=== PATIENT | female | born 1985 | race Caucasian/White ===

== ENCOUNTER 2019-05-02 22:45 | Emergency (ER) | payer SELFPAY ==
[2019-05-02 23:38] VITALS: BP 107/65
--- NOTE | 2019-05-02 23:52 | ER Document Report ---
ED Cardiac - General Chief Complaint: Arrhythmia Stated Complaint: CHEST PAIN Time Seen by Provider: 05/02/19 23:40 Mode of Arrival: Ambulatory Information source: Patient TRAVEL OUTSIDE OF THE [place] IN LAST 30 DAYS: No - HPI Notes: Patient presents stating that earlier she was having palpitations and felt lightheaded and dizzy. She states she feels much better currently. She states that she feels this was due to anxiety. She states she is currently in town for work. She states that she is stressed out because she is working 14 to 16-hour days. She states she only gets to go home 2 days a week. She states she has 4 children at home and that today they were asking her to come home and this made her more anxious. She states that she definitely feels better now and has no more palpitations or lightheadedness. There is no significant chest pain or shortness of breath. She states she has had this 1 time before secondary to stress. She states that her doctor recommended a monitor but she never had this done. She denies any significant past medical history. She denies any use of energy drinks. The symptoms today were moderate. It did not radiate. They are made worse with stress and better without stress. The symptoms were intermittent. Past Medical History - General Information source: Patient - Social History Smoking Status: Never Smoker Frequency of alcohol use: None Drug Abuse: None Family History: Reviewed & Not Pertinent Patient has suicidal ideation: No Patient has homicidal ideation: No Review of Systems - Review of Systems Constitutional: denies: Chills, Fever Cardiovascular: Palpitations. denies: Chest pain Respiratory: denies: Cough, Sputum -: Yes All other systems reviewed and negative Physical Exam - Vital signs Vitals: Resp 10 L 05/02/19 23:20 Interpretation: Normal - General General appearance: Appears well, Alert - HEENT Head: Normocephalic, Atraumatic Eyes: Normal Pupils: PERRL - Respiratory Respiratory status: No respiratory distress Chest status: Nontender Breath sounds: Normal Chest palpation: Normal - Cardiovascular Rhythm: Regular Heart sounds: Normal auscultation Murmur: No - Abdominal Inspection: Normal Distension: No distension Bowel sounds: Normal Tenderness: Nontender Organomegaly: No organomegaly - Back Back: Normal, Nontender - Extremities General upper extremity: Normal inspection, Nontender, Normal color, Normal ROM, Normal temperature General lower extremity: Normal inspection, Nontender, Normal color, Normal ROM, Normal temperature, Normal weight bearing. No: Carlos's sign - Neurological Neuro grossly intact: Yes Cognition: Normal Orientation: AAOx4 [place] Coma Scale Eye Opening: Spontaneous [place] Coma Scale Verbal: Oriented [place] Coma Scale Motor: Obeys Commands [place] Coma Scale Total: 15 Speech: Normal Motor strength normal: LUE, RUE, LLE, RLE Sensory: Normal - Psychological Associated symptoms: Normal affect, Normal mood - Skin Skin Temperature: Warm Skin Moisture: Dry Skin Color: Normal Course - Re-evaluation Re-evalutation: 05/02/19 23:51 Patient presents with a report of some lightheadedness and palpitations that is now resolved. Patient is PERC negative. I see no evidence of arrhythmia on EKG. She has normal vitals and a normal exam. She states she feels back to normal. It does seem most consistent with anxiety. I do not believe that further work-up would be beneficial. - Vital Signs Vital signs: Temp Pulse Resp BP Pulse Ox 98.5 F 79 16 107/65 99 05/02/19 23:37 05/02/19 23:37 05/02/19 23:37 05/02/19 23:37 05/02/19 23:37 - EKG Interpretation by Me EKG shows normal: Sinus rhythm Rate: Normal - 79 Rhythm: NSR [place]/QRS: No: Right axis deviation, Left axis deviation Discharge - Discharge Clinical Impression: Palpitations Condition: Stable Disposition: HOME, SELF-CARE Instructions: Palpitations (Irregular or Rapid Heartrate) ([facility]) Additional Instructions: Please call your family doctor as soon as possible to arrange follow-up
--- NOTE | 2019-05-03 17:58 | EKG REPORT ---
SEVERITY:- NORMAL ECG - SINUS RHYTHM : Confirmed by: Genny Dunn 03-May-2019 17:58:05
== END 2019-05-02 23:58 | disposition home or self-care (01) ==
LOC: ER 22:45
DX: R00.2 Palpitations (principal); R42 Dizziness and giddiness; F41.9 Anxiety disorder, unspecified
CPT/HCPCS: 93005; 93010; 99285